=== PATIENT | female | born 1960 | race Caucasian/White ===

== ENCOUNTER → 2017-09-29 | Outpatient (CLI) | payer OTHER ==
[~2017-09-29] MED LIST: NAPR550 PO; OXYACE5T PO
== END | disposition home or self-care (01) ==
LOC: LAB SHORT 14:04 → LAB 14:04
DX: R10.11 Right upper quadrant pain (principal)
CPT/HCPCS: 83690

== ENCOUNTER → 2019-06-03 | Outpatient (CLI) | payer OTHER ==
[2019-06-03 13:55] LABS: Alanine Aminotransfer (ALT/SGP 28 U/L (12-78); Albumin, Blood 3.5 g/dL (3.4-5.0); Albumin/Globulin Ratio 1.1 (0.8-1.8); Alk Phos 111 U/L (50-136); Anion Gap 6 mmol/L (6-16); Aspartate Aminotrans (AST/SGOT 12 U/L (12-37); Bilirubin, Total 0.5 mg/dL (0.1-1.0); Blood Urea Nitrogen 16 mg/dL (8-24); CHOL/HDL RATIO 3.3; CO2, Blood 27 mmol/L (21-32); Calcium, Blood 8.9 mg/dL (8.5-10.1); Chloride, Blood 107 mmol/L (98-108); Cholesterol 200 mg/dL (50-200); Globulin, Blood 3.2 g/dL (2.2-4.0); Glucose, Blood 97 mg/dL (70-99); HDL Cholesterol 60 mg/dL (>39); LDL/HDL RATIO 2.1; Low Density Lipoprotein Chol 127 mg/dL (0-110); Potassium, Blood 3.5 mmol/L (3.5-5.5); Sodium, Blood 140 mmol/L (136-145); Total Protein, Blood 6.7 g/dL (6.4-8.2); Triglycerides 66 mg/dL (30-160); Very Low Density Lipoprot Chol 13 mg/dL (6-32)
[2019-06-03 13:56] LABS: Bun/Creatinine Ratio 19.7 (12.0-20.0); Creatinine, Blood 0.81 mg/dL (0.40-1.00); Glomerular Filtration Rate >60 (60-)
== END | disposition home or self-care (01) ==
LOC: LAB 09:28 → LAB SHORT 09:28
PROVIDERS: Hospitalist
DX: E78.00 Pure hypercholesterolemia, unspecified (principal); I10 Essential (primary) hypertension
CPT/HCPCS: 80053; 80061

== ENCOUNTER → 2021-03-27 | Outpatient (CLI) | payer OTHER | LOC: LAB SHORT 12:00 | DX: N30.01 Acute cystitis with hematuria (principal) | CPT/HCPCS: 87086 ==

== ENCOUNTER 2022-07-08 07:28 | Day surgery (SDC) | payer OTHER ==
[2022-06-26 13:48] LABS: BASOPHILS ABSOLUTE AUTO 0.09 K/mm3 (0.00-0.23); BASOPHILS PERCENT AUTO 1 % (0-2); EOSINOPHILS ABSOLUTE AUTO 0.17 K/mm3 (0.00-0.68); EOSINOPHILS PERCENT AUTO 3 % (0-6); Hematocrit 43.4 % (33.0-51.0); Hemoglobin 14.9 g/dL (11.5-16.0); IMMATURE GRAN ABSOLUTE AUTO 0.03 K/mm3 (0.00-0.10); IMMATURE GRAN PERCENT AUTO 1 % (0-1); LYMPHOCYTES ABSOLUTE AUTO 2.18 K/mm3 (0.84-5.20); LYMPHOCYTES PERCENT AUTO 34 % (21-46); MONOCYTES ABSOLUTE AUTO 0.51 K/mm3 (0.16-1.47); MONOCYTES PERCENT AUTO 8 % (4-13); Mean Corpuscular HGB 31.2 pg (26.0-34.0); Mean Corpuscular HGB Conc 34.3 g/dL (31.5-36.5); Mean Corpuscular Volume 91 fL (80-100); Mean Platelet Volume 9.3 fL (9.1-12.4); NEUTROPHILS ABSOLUTE AUTO 3.36 K/mm3 (1.96-9.15); NEUTROPHILS PERCENT AUTO 53 % (41-73); Platelet Count 344 K/mm3 (150-400); RDW Coefficient Variation 13.1 % (11.7-14.2); RDW Standard Deviation 43.3 fL (35.1-46.3); Red Blood Cell Count 4.77 M/mm3 (3.80-5.20); White Blood Cell Count 6.34 K/mm3 (4.00-11.30)
[2022-06-26 17:03] LABS: Bun/Creatinine Ratio 19.8 (12.0-20.0); Calcium, Blood 9.3 mg/dL (8.5-10.1); Creatinine, Blood 0.96 mg/dL (0.40-1.00); Potassium, Blood 3.2 mmol/L (3.5-5.5)
[~2022-07-08] VITALS: Ht 172.7 cm; Wt 129.6 kg
[~2022-07-08 07:28] MED LIST changes: +Adipex-P37.5 MG PO; +DICL75ER PO; +HYDCHL50 PO; +MYRBETRIQ25 MG PO; +TELM20 PO; +TOPI25 PO; +TROSPIUM CHLORI20 M1
[2022-07-08] MEDS ORDERED: ACET500 PO (07:51)
--- NOTE | 2022-07-08 13:15 | NUR ---
PT ARRIVED TO UNIT AT APROX 1300 FROM PACU. PT W/CONRAD WRAP TO LLE C/D/I. PT HAS NO C/O PAIN AT THIS TIME. PT HAD SPINAL, NO SENSATION TO BLE BUT IS ABLE TO WIGGLE TOES ON LLE. PT GIVEN CLEAR LIQUIDS, WILL ADVANCE TOLERATE.
--- NOTE | 2022-07-08 19:23 | NUR ---
SHIFT SUMMARY POD0 L TKA, A/OX4, VSS, TOLERATING PO, UP WITH THERAPY TODAY AND DID WELL, MOST OF THE SHIFT WAS UP TO CHAIR, SHE HAS STRUGGLED A LITTLE WITH PAIN BUT HAS BEEN REPORTING THE SAME PAIN LEVEL WHILE STATING IT IS A LITTLE BETTER EACH TIME. NO ACUTE EVENTS THIS SHIFT, CALL LIGHT IN REACH, REPORT GIVEN TO NOC RN.
--- NOTE | 2022-07-09 04:24 | NUR ---
SHIFT SUMMARY PT POD 0 LEFT TKA, PT HAS RESTED OFF AND ON T/O THE NIGHT, PAIN HAS BEEN A CHALLENGE FOR PT THIS SHIFT, MEDICATED PER EMAR WITH EFFECT. SHE HAS BEEN UP AND AMBULATING IN THE [facility] AND TO AND FROM THE BATHROOM. DRESSING C/D/I TO KNEE, POST OP VITALS ARE STABLE. PT VOIDING AND TOLERATING PO INTAKE. PLAN IS FOR DC TODAY. BED IN LOWEST POSITION, CALL LIGHT WITHIN REACH.
[2022-07-09 05:37] LABS: BASOPHILS ABSOLUTE AUTO 0.02 K/mm3 (0.00-0.23); BASOPHILS PERCENT AUTO 0 % (0-2); EOSINOPHILS PERCENT AUTO 0 % (0-6); Hematocrit 34.6 % (33.0-51.0); Hemoglobin 12.4 g/dL (11.5-16.0); IMMATURE GRAN ABSOLUTE AUTO 0.11 K/mm3 (0.00-0.10); IMMATURE GRAN PERCENT AUTO 1 % (0-1); LYMPHOCYTES ABSOLUTE AUTO 1.01 K/mm3 (0.84-5.20); LYMPHOCYTES PERCENT AUTO 7 % (21-46); MONOCYTES ABSOLUTE AUTO 0.69 K/mm3 (0.16-1.47); MONOCYTES PERCENT AUTO 5 % (4-13); Mean Corpuscular HGB 31.4 pg (26.0-34.0); Mean Corpuscular HGB Conc 35.8 g/dL (31.5-36.5); Mean Corpuscular Volume 88 fL (80-100); Mean Platelet Volume 9.6 fL (9.1-12.4); NEUTROPHILS ABSOLUTE AUTO 12.09 K/mm3 (1.96-9.15); NEUTROPHILS PERCENT AUTO 87 % (41-73); Platelet Count 277 K/mm3 (150-400); RDW Coefficient Variation 12.5 % (11.7-14.2); RDW Standard Deviation 40.2 fL (35.1-46.3); Red Blood Cell Count 3.95 M/mm3 (3.80-5.20); White Blood Cell Count 13.92 K/mm3 (4.00-11.30)
[2022-07-09 06:35] LABS: Bun/Creatinine Ratio 17.9 (12.0-20.0); Calcium, Blood 8.7 mg/dL (8.5-10.1); Creatinine, Blood 0.84 mg/dL (0.40-1.00); Potassium, Blood 2.8 mmol/L (3.5-5.5)
[2022-07-09] MEDS ORDERED: Aspir 8181 MG PO (08:28)
[2022-07-09] MEDS ORDERED: Percocet 5-3251 EACH PO (08:29)
--- NOTE | 2022-07-09 10:31 | NUR ---
DISCHARGE SUMMARY ALERT AND ORIENTED. CLEARED BY PHYSICAL THERAPY YESTERDAY 07/08/22. SBA TO AMBULATE IN HALLS WITH FWW. TOLERATING REGULAR DIET AND LIQUIDS. PAIN MANAGED WITH PO MED. LEFT KNEE WITH AQUACEL C/D/I. CONRAD WRAP, OZ HOSE, AND POLAR PACK. IV DC'D WNL. DISCHARGE EDUCATION GIVEN ON NEW MEDS, INCISION CARE, ACTIVITY, AND FOLLOW UP APPTS. PATIENT LEFT UNIT AT 1030 VIA WHEELCHAIR FOR HOME WITH SPOUSE.
== END 2022-07-09 10:22 | disposition home or self-care (01) ==
LOC: ORSCMMR 07:28 → ORD 08:15 → ORSCMMR 08:45 → ORD 08:45 → SURS 12:45 → ORSCMMR 07-09 10:22
PROVIDERS: Orthopaedic Surgery
PROC: 8E0Y0CZ Robotic Assisted Procedure of Lower Extremity, Open Approach (ICD-10-PCS; principal; 2022-07-08 08:45)
PROC: 0SRB0JA Replacement of Left Hip Joint with Synthetic Substitute, Uncemented, Open Approach (ICD-10-PCS; principal; 2022-07-08 08:45)
DX: M17.12 Unilateral primary osteoarthritis, left knee (principal); I10 Essential (primary) hypertension; E66.01 Morbid (severe) obesity due to excess calories; Z68.41 Body mass index [BMI] 40.0-44.9, adult; Z79.899 Other long term (current) drug therapy
CPT/HCPCS: 27447; 20985; S2900; 36415; 73560-LT; 80048; 85025; 97110; 97161; 97530; A9270; C1776; J0171; J0690; J0735; J1100; J1885; J2250; J2704; J2795; J3010; J7120

== ENCOUNTER 2022-09-28 09:59 | Emergency (ER) | payer OTHER ==
[~2022-09-28] VITALS: Ht 172.7 cm; Wt 124.7 kg
[~2022-09-28 09:59] MED LIST changes: +ACET500 PO; +Aspir 8181 MG PO; +Percocet 5-3251 EACH PO
[2022-09-28 10:12] VITALS: BP 161/91
== END 2022-09-28 11:50 | disposition home or self-care (01) ==
LOC: ER 09:59
DX: M79.662 Pain in left lower leg (principal); Z79.899 Other long term (current) drug therapy; Z79.82 Long term (current) use of aspirin; Z96.652 Presence of left artificial knee joint
CPT/HCPCS: 93971

== ENCOUNTER 2025-03-23 09:31 | Emergency (ER) | payer OTHER ==
[~2025-03-23] VITALS: Ht 172.7 cm; Wt 108.9 kg
[2025-03-23 10:35] LABS: BASOPHILS ABSOLUTE AUTO 0.06 K/mm3 (0.00-0.23); BASOPHILS PERCENT AUTO 1 % (0-2); EOSINOPHILS ABSOLUTE AUTO 0.12 K/mm3 (0.00-0.68); EOSINOPHILS PERCENT AUTO 2 % (0-6); Hematocrit 39.3 % (33.0-51.0); Hemoglobin 13.6 g/dL (11.5-16.0); IMMATURE GRAN ABSOLUTE AUTO 0.01 K/mm3 (0.00-0.10); IMMATURE GRAN PERCENT AUTO 0 % (0-1); LYMPHOCYTES ABSOLUTE AUTO 2.09 K/mm3 (0.84-5.20); LYMPHOCYTES PERCENT AUTO 37 % (21-46); MONOCYTES ABSOLUTE AUTO 0.43 K/mm3 (0.16-1.47); MONOCYTES PERCENT AUTO 8 % (4-13); Mean Corpuscular HGB Conc 34.6 g/dL (31.5-36.5); Mean Corpuscular Volume 88 fL (80-100); NEUTROPHILS ABSOLUTE AUTO 2.91 K/mm3 (1.96-9.15); NEUTROPHILS PERCENT AUTO 52 % (41-73); NRBC ABSOLUTE 0.00 K/mm3 (0.00-0.02); NRBC Auto 0.0 /100 WBC (0.0-0.2); Platelet Count 252 K/mm3 (150-400); RDW Coefficient Variation 13.0 % (11.7-14.2); RDW Standard Deviation 42.0 fL (35.1-46.3)
[2025-03-23 11:12] LABS: Alanine Aminotransfer (ALT/SGP 18.0 U/L (12-78); Albumin, Blood 3.6 g/dL (3.4-5.0); Albumin/Globulin Ratio 1.2 (0.8-1.8); Anion Gap 7.0 mmol/L (3-11); Aspartate Aminotrans (AST/SGOT 12.0 U/L (12-37); Bilirubin, Total 0.8 mg/dL (0.1-1.0); Blood Urea Nitrogen 9.0 mg/dL (8-24); CO2, Blood 27.0 mmol/L (21-32); Calcium, Blood 9.0 mg/dL (8.5-10.1); Chloride, Blood 108.0 mmol/L (98-108); Creatinine, Blood 0.93 mg/dL (0.40-1.00); Globulin, Blood 3.1 g/dL (2.2-4.0); Glucose, Blood 87.0 mg/dL (70-99); Potassium, Blood 4.0 mmol/L (3.5-5.5); Sodium, Blood 138.0 mmol/L (136-145); Total Protein, Blood 6.7 g/dL (6.4-8.2)
[2025-03-23] MEDS ORDERED: NS 1,000 ML BAG IR SCH (13:40)
[2025-03-23] MEDS ORDERED: Pantoprazole Sodium 40 MG Injection IV ONE (13:40)
[2025-03-23 13:50] LABS: Source, Urine Clean Catch
[2025-03-23 13:59] LABS: Bilirubin, Urine Neg (Neg); Color, Urine Yellow (P-Yellow); Glucose Qualitative, Urine Neg (Neg); Ketones, Urine Neg (Neg); Leukocyte Esterase, Urine 3+ (Neg); Protein, Urine 1+ (Neg); Specific Gravity, Urine 1.010 (1.003-1.022); Urobilinogen, Urine NORM (Normal)
[2025-03-23] MEDS ORDERED: NS 1,000 ML IV ONE (14:08)
[2025-03-23 15:37] LABS: Red Blood Cells, Urine 0-2 /hpf (0-2); White Blood Cells, Urine 25-50 /hpf (0-5)
[2025-03-23] MEDS ORDERED: CODACE30 PO (16:12)
[2025-03-23] MEDS ORDERED: CEFP200 PO (16:12)
[2025-03-23] MEDS ORDERED: PANT40 PO (16:12)
[2025-03-23 16:18] VITALS: BP 165/98
[2025-03-28] MEDS ORDERED: PENVK500 PO (10:44)
== END 2025-03-23 16:28 | disposition home or self-care (01) ==
LOC: ER 09:31
PROVIDERS: Student in an Organized Health Care Education/Training Program
DX: N39.0 Urinary tract infection, site not specified (principal); R10.13 Epigastric pain; I10 Essential (primary) hypertension; Z79.82 Long term (current) use of aspirin; Z79.899 Other long term (current) drug therapy
CPT/HCPCS: 76705; 80053; 81001; 83690; 84484; 85025; 87077; 87086; 87186; 93005; 93010; 96374; 99284-25; A9270; J2470; J7030